=== PATIENT | male | born 1975 | race Two or more races ===

== ENCOUNTER 2022-03-15 10:57 | Emergency (ER) | payer SELFPAY ==
[~2022-03-15] VITALS: Ht 175.3 cm; Wt 67.1 kg
--- NOTE | 2022-03-15 11:30 | NUR ---
BIBS C/O PROLAPSED HEMORRHOID X1YEAR WORSE YESTERDAY P/S 02/15. WILL CONTINUE TO MONITOR THE PATIENT.
[2022-03-15] MEDS ORDERED: HYDR30CR79 TP (12:47)
[2022-03-15] MEDS ORDERED: HYDR25SU13 RC (13:04)
--- NOTE | 2022-03-15 13:07 | NUR ---
Patient discharged to home in stable condition. Written and verbal after care instructions given. Patient verbalizes understanding of instruction.
[2022-03-15 13:08] VITALS: BP 130/74
== END 2022-03-15 13:09 | disposition home or self-care (01) ==
LOC: ER 11:05
DX: K64.8 Other hemorrhoids (principal); K64.4 Residual hemorrhoidal skin tags